=== PATIENT | female | born 1970 | race Caucasian/White ===

== ENCOUNTER 2017-02-11 00:47 | Observation (INO) | payer OTHER ==
[~2017-02-11] VITALS: Ht 160 cm; Wt 88.0 kg
[2017-02-11 01:06] VITALS: BP 120/75; PULSE 74; RESP 20; TEMP 97.5; O2SAT 96
[2017-02-11] MEDS ORDERED: ACETAMINOPHEN 500 MG CPLT PO PRN (01:30)
[2017-02-11] MEDS ORDERED: ONDANSETRON HCL 4 MG/2 ML VIAL IV PRN (01:30)
[2017-02-11] MEDS ORDERED: NITROGLYCERIN 0.4 MG SL 25 TABS/BTL SL PRN (01:30)
[2017-02-11] MEDS ORDERED: SODIUM CHLORIDE 0.9% FLUSH 10 ML FLUSH IV FLUSH PRN ×2 (01:30)
[2017-02-11 01:31] VITALS: PULSE 73
[2017-02-11] MEDS: NITROGLYCERIN 2% OINT 1 GM PACKET TOPICAL SCH ×2 (02:00→07:30)
[2017-02-11 03:20] VITALS: BP 116/60; PULSE 75; RESP 18; TEMP 98.8; O2SAT 96
[2017-02-11 03:32] LABS: CREATINE KINASE 44 U/L (26-192)
[2017-02-11 03:48] VITALS: PULSE 99
[2017-02-11 07:25] VITALS: PULSE 72
[2017-02-11 07:36] VITALS: BP 118/68; PULSE 81; RESP 18; TEMP 97.7; O2SAT 95
--- NOTE | 2017-02-11 08:57 | HHI.HP ---
HPI Primary Care Physician Non-Staff Chief Complaint Chest pain History of Present Illness This is a 47-year-old female that presents to ED in [place] to evaluate chest discomfort. She is subsequently transported via [facility] to this facility. She states that around 9:00 yesterday morning while she was at work she developed a heaviness in the center of her chest that radiated into her shoulder blades. She was mildly short of breath. She felt fatigued. The discomfort was constantly there until she was given nitroglycerin in the ED. Her discomfort lasted about 12 hours. She was little nauseous. No diaphoresis. She found nothing to worsen her symptoms and other than the nitroglycerin nothing seem to help. She denies any recent illnesses. Denies fevers or chills. States that she does a cardiovascular workout 4 times a week on average. She will get on the elliptical for about 40-45 minutes maintaining her heart rate into the 140s. She states she has never had discomfort in her chest while doing this. Denies hypertension, hyperlipidemia, diabetes, known CAD, and known family history of CAD. She is a lifetime nonsmoker. Review of Systems General: Patient denies fevers, chills recent, and recent travel HEENT: Patient developed a headache after getting nitroglycerin. Patient denies sore throat, difficulty swallowing. Cardiovascular: Has the chest discomfort as mentioned above. Denies sensation of heart beating rapidly or irregularly. No syncope. Denies diaphoresis. Respiratory: Mild shortness of breath. Denies inspirational chest discomfort. Denies coughing wheezing or hemoptysis. GI: Mild nausea. Patient denies vomiting, diarrhea, abdominal pain, bloody stools. Musculoskeletal: Patient denies joint pain or edema. Denies calf pain or edema. Neurovascular: Patient denies numbness, tingling, weakness in extremities. Patient developed a headache after getting nitroglycerin. Endocrine: Denies polyuria and polydipsia. Hematologic: Denies easy bruising. Skin: Denies rash or itching. Past Family Social History Allergies: Coded Allergies: Clindamycin (Verified Allergy, Severe, 02/10/17) Keflex (Verified Allergy, Severe, 02/10/17) Levaquin (Verified Allergy, Severe, 02/10/17) Sulfa (Verified Allergy, Severe, 02/10/17) Past Medical History Denies hypertension, hyperlipidemia, diabetes, and CAD. Lifetime nonsmoker. Past Surgical History Hysterectomy. Active Ordered Medications Current Medications Medications (Trade) Dose Ordered Sig/Zak Route Start Time Stop Time Status Last Admin (NS Flush) 2 ml UNSCH PRN IV FLUSH 02/11/17 01:30 (NS Flush) 2 ml UNSCH PRN IV FLUSH 02/11/17 01:30 (Tylenol) 500 mg Q4H PRN PO 02/11/17 01:30 02/11/17 03:45 (Zofran Inj) 4 mg Q6H PRN IV 02/11/17 01:30 (Nitroglycerin 2% Oint) 1 inch Q6H TOPICAL 02/11/17 01:30 02/11/17 02:00 (Nitrostat Sl) 0.4 mg Q5M PRN SL 02/11/17 01:30 (Aspirin) 325 mg DAILY PO 02/12/17 09:00 Family History Denies family history of CAD. States that her mother recently had a heart catheterization and she was told that it was normal. Social History Patient is a lifetime nonsmoker. Denies alcohol or illicit drugs. Physical Exam Vital Signs Vital Signs Date Time Temp Pulse Resp B/P Pulse Ox O2 Delivery O2 Flow Rate FiO2 02/11/17 07:36 97.7 81 18 118/68 95 02/11/17 07:25 72 02/11/17 04:50 21 02/11/17 03:48 99 02/11/17 03:20 98.8 75 18 116/60 96 02/11/17 01:31 73 02/11/17 01:06 97.5 74 20 120/75 96 Physical Exam GENERAL: This is a well-nourished, well-developed patient, in no apparent distress. Patient speaks in clear complete sentences. Patient is pleasant. Her is also at the bedside. HEENT: Head is atraumatic and normocephalic. Neck is supple without lymphadenopathy and trachea is midline. No JVD or carotid bruits. CARDIOVASCULAR: Regular rate and rhythm without murmurs, gallops, or rubs. RESPIRATORY: Clear to auscultation. Breath sounds equal bilaterally. No wheezes , rales, or rhonchi. Chest wall is nontender. No use of accessory muscles. GASTROINTESTINAL: Abdomen is nontender, nondistended. Abdomen soft. No obvious pulsatile mass or bruit. No CVA tenderness. Strong femoral pulses bilaterally. Normal bowel sounds in all quadrants. MUSCULOSKELETAL: Patient is moving upper and lower extremities freely. No calf tenderness or edema, no Homans sign. Strong pulses in upper and lower extremities. NEUROLOGICAL: Patient is alert and oriented. Cranial nerves 2-12 are grossly intact. No focal deficits and speech is clear. SKIN: No rash and turgor is normal. Laboratory Laboratory Tests Test 02/11/17 02:45 Total Creatine Kinase 44 Troponin I LESS THAN 0.02 Course EKGs have sinus rhythm without significant ST segment depressions or elevations. Assessment and Plan Assessment and Plan * Atypical chest pain: Patient has had serial cardiac enzymes and EKGs for ruling out purposes. Patient does not have risk factors for coronary disease. She was seen by Dr. Hirsch cardiology and the chest pain center. Stress testing was offered. Patient has declined this after explaining the risks of falsely abnormal stress testing. We agree with this plan. Patient will follow- up with her primary care physician. She should return to ED for interval issues. Patient is stable at this time. She is agreeable to this plan. Ronnie Garcia Feb 11, 2017 08:57
--- NOTE | 2017-02-11 08:58 | HHI.DCPOC ---
Discharge Care Plan Goals to Promote Your Health * To prevent worsening of your condition and complications * To maintain your health at the optimal level Directions to Meet Your Goals Take your medications as prescribed Follow your dietary instruction Follow activity as directed Keep your appointments as scheduled Take your immunizations and boosters as scheduled If your symptoms worsen call your PCP, if no PCP go to Urgent Care Center or Emergency Room Smoking is Dangerous to Your Health. Avoid second hand smoke Call the 24-hour hour crisis hotline for domestic abuse at Ronnie Garcia Feb 11, 2017 08:58
--- NOTE | 2017-02-11 11:13 | EKG ---
Date Performed: 02/11/2017 Time Performed: 02:35:23 PTAGE: 47 years EKG: Sinus rhythm POSSIBLE RIGHT VENTRICULAR CONDUCTION DELAY MINIMAL ST DEPRESSION BORDERLINE ECG Since previous trac ing, no significant change noted NO PREVIOUS TRACING DOCTOR: Carmen Hirsch Interpretating Date/Time 02/11/2017 11:12:52
[2017-02-12] MEDS ORDERED: ASPIRIN 325 MG TAB PO SCH (09:00)
== END 2017-02-11 09:59 | disposition home or self-care (01) ==
LOC: NEDDLT 00:47 → NEPHCDU 00:50
PROVIDERS: ADMIT Internal Medicine Cardiovascular Disease; ATTEND Internal Medicine Cardiovascular Disease
DX: R07.89 Other chest pain (principal); R06.02 Shortness of breath; R53.83 Other fatigue; R11.0 Nausea
CPT/HCPCS: 70450; 71010; 80053; 82550; 84484; 85025; 85610; 85730; 93005; 96360; 99285; G0378; J7030; 99281